=== PATIENT | male | born 1985 | race Caucasian/White ===

== ENCOUNTER 2024-06-11 07:51 | Emergency (ER) | payer BC, SELFPAY ==
[2024-06-11 07:53] VITALS: BP 111/64; PULSE 72; RESP 11; TEMP 36.9; O2SAT 99; BMI 27.9
--- NOTE | 2024-06-11 08:02 | EKG12_ITS ---
Test Reason : SYNCOPE Blood Pressure : */* mmHG Vent. Rate : 64 BPM Atrial Rate : 64 BPM P-R Int : 174 ms QRS Dur : 86 ms QT Int : 396 ms P-R-T Axes : 43 86 59 degrees QTcB Int : 408 ms Normal sinus rhythm Normal ECG Confirmed by CHARLES HUYNH, NADINE ([id number]), digital editor JASMIN SOTELO ([id number]) on 06/12/2024 8:20:15 AM Referred By: LORRAINE Confirmed By: NADINE SOTO MD
[2024-06-11] MEDS: 0.9% Normal Saline (1000mL) 1,000 ML 999 ML IV (08:07)
[2024-06-11 08:10] LABS: Absolute Lymphocyte Count 3.33 X10^3/uL (0.83-4.51); Absolute Neutrophil Count 2.9 X10^3/uL (2.0-7.7); Basophil# 0.05 X10^3/uL; Basophil% 0.7 % (0-1); Eosinophils% 5.4 % (0-5); Hematocrit 44.6 % (40-54); Hemoglobin 15.4 g/dL (13.0-16.5); Lymphocyte # 3.33 X10^3/ul (0.83-4.51); Lymphocyte % 44.9 % (19-41); Mean Corp Hgb Conc 34.5 g/dL (32-36); Mean Corpuscular Hgb 28.7 pg (27.0-32.0); Mean Corpuscular Volume 83.1 fL (80-94); Monocyte% 9.4 % (0-10); NRBC Flagged by Analyzer 0 % (0-5); Neutrophil % 39.2 % (47-70); Platelet Count 286 K/mm3 (150-450); RBC Distribution Width CV 13.5 % (11.6-14.6); RBC Distribution Width SD 40.8 fl (35.1-43.9); Red Blood Count 5.37 M/mm3 (4.6-6.2); White Blood Count 7.4 K/mm3 (4.4-11.0)
--- NOTE | 2024-06-11 08:12 | VDLE_ITS ---
Reason For Study Reason For Study: Pain RLE RIGHT LEFT GSV is normal. CFV is compressible, spontaneous, phasic, competent, CFV is compressible, spontaneous, phasic, competent and demonstrates normal augmentation. and demonstrates normal augmentation. FV is compressible, spontaneous, phasic, competent and demonstrates normal augmentation. Rt GastrocV is DILATED and NON COMPRESSIBLE with DVT extending into the Popliteal V Rt PopV DVT appears unstable. T/P Trunk is compressible. PTV is compressible. RT PerV is compressible. Procedure This is a venous duplex using B-mode, color flow and spectral Doppler. Exam performed portable in ED. A preliminary report was called and/or faxed to Dr. Flores. VL/Venous Duplex US, Unilateral Interpretation Summary Acute deep vein thrombosis is noted in the right popliteal vein, gastrocnemius vein. Ordering Physician: Devin Flores Performed By: Shireen Falcon, RANDELL, RVT
--- NOTE | 2024-06-11 08:13 | EDS_ITS ---
HPI History of Present Illness Chief Complaint: Syncope Narrative Narrative: Patient is a 38-year-old male with no known significant past medical history who presents to the emergency department after syncopal episode while in the shower. Patient states that this morning he got in the shower and noted that he was feeling not normal he states that he sat down in the shower and then he noted that he woke up lying completely flat on the shower floor. He states that his found him and states that he does not exactly remember while this occurred. He states that he for the past few days has had some pain in his right calf and states that his mother has recently had issues with blood clots. He states that he did travel to [place] recently but states that he has not had any other further travels. He himself denies any history of blood clots. [facility] Medical History Shoulder pain Back pain Neck pain Home Medications ?Medication ?Instructions ?Recorded ?Last Taken ?Type apixaban 5 mg (74 tabs) tablets in See Rx Instructions PO .COMPLEX 06/11/24 Unknown Rx a dose pack (Eliquis DVT-PE Treat #74 tabs 30D Start) Allergy/AdvReac Type Severity Reaction Status Date / Time No Known Allergies Allergy Verified 06/11/24 07:53 Social History Smoking Status: Former smoker ROS ROS ED ROS Narrative Constitutional: Denies fevers, chills, headaches Eyes: Denies change in vision double vision blurry vision Cardiovascular: Denies chest pain or palpitations Respiratory: Denies coughing wheezing shortness of breath Abdomen: Denies abdominal pain nausea vomit diarrhea : Denies any urinary symptoms Neurological: Denies numbness, weakness, tingling Musculoskeletal: Denies back pain Skin: Denies rashes or lesions EXAM Physical Exam Narrative Exam Narrative: General: Patient was lying in bed rest comfortably did not appear to be in acute distress Head: Atraumatic, normocephalic Eyes: PERRL bilateral, EOMI bilateral, no conjunctival injection noted Neck: Soft, supple and trachea midline Cardiovascular: Regular rate and rhythm no murmurs gallops rubs noted Respiratory: Clear to auscultation bilaterally no rales rhonchi or wheezes noted Abdomen: Soft, nondistended, nontender to palpation Musculoskeletal: No tenderness palpation in the right calf no swelling noted Extremities: +5/5 strength noted in the bilateral per lower extremity, radial pulses +2/4 in the bilateral extremities Neurological: Patient follow commands knew he was at [facility] year is 2024 Skin: Warm, dry, intact no rashes or lesions noted Const Vital Signs: 06/11/24 07:53 06/11/24 07:56 06/11/24 08:15 Temperature 98.5 F Temperature Source Oral Pulse Rate 72 Respiratory Rate 11 L Respiratory Effort Normal Respiratory Pattern Normal Blood Pressure 111/64 Blood Pressure Mean 79 Pulse Ox 99 Oxygen Delivery Method Room Air Room Air 06/11/24 08:52 06/11/24 10:00 06/11/24 11:17 Temperature Temperature Source Pulse Rate 65 65 77 Respiratory Rate 10 L 18 15 Respiratory Effort Respiratory Pattern Blood Pressure 116/82 H 128/78 H 127/69 H Blood Pressure Mean 93 94 88 Pulse Ox 99 95 99 Oxygen Delivery Method Room Air Room Air Room Air MDM MDM MDM Narrative Medical decision making narrative: Patient is a 38-year-old male who presented to the emergency department the chief complaint of syncope. On the differential diagnose includes but not limited to vasovagal syncope, near syncope, DVT, cardiac arrhythmia. Once workup is obtained reviewed he will be reevaluated. Fletcher patient's CBC was reviewed and showed no evidence leukocytosis white blood count normal at 7.4, hemoglobin 15.4, plate count was noted be 286. Patient sodium normal 130, potassium of 3.8, creatinine was normal at 1.06. Patient's troponin was less than 6 with a delta pending. Patient's EKG was reviewed by myself which showed sinus rhythm with a rate of 64 bpm with a normal MO interval of 174 and a QTc of 408. Patient's venous duplex was obtained and reviewed and he has a DVT noted in the gastroc vein that is extending into the popliteal region in the right popliteal DVT appears to be unstable. Given the DVT and the stability of this I added on a CTA of the chest. Patient CT of the chest was reviewed and showed no evidence of PE no acute processes noted. At this point time given the patient's syncopal episode and his unstable DVT will discuss case with hospitalist for admission. Discussed case with hospitalist Dr. Arellano who states that he called vascular surgeon Dr. Abarca and they had discussion and he states that there is no need to admit this patient he can be placed on Eliquis and sent home. Dr. Arellano Came down and evaluated the patient at bedside had discussion with him about this. We will add on a hypercoagulable workup before he is discharged and started on the Eliquis. He was advised to come to the emergency department if he hits his head while on the Eliquis or any other concerns. He was referred to a primary care physician. He is agreeable this plan as well as significant other at bedside all question concerns answered he is discharged home in stable condition. Lab Data Labs: Laboratory Results - last 24 hr 06/11/24 06/11/24 07:20 11:48 WBC 7.4 RBC 5.37 Hgb 15.4 Hct 44.6 MCV 83.1 MCH 28.7 MCHC 34.5 RDW Std Deviation 40.8 RDW Coeff of Valdo 13.5 Plt Count 286 MPV 10.0 Immature Gran % (Auto) 0.400 Neut % (Auto) 39.2 L Lymph % (Auto) 44.9 H Harmon % (Auto) 9.4 Eos % (Auto) 5.4 H Baso % (Auto) 0.7 Absolute Neuts (auto) 2.9 Absolute Lymphs (auto) 3.33 Nucleated RBC % 0 Sodium 137 Potassium 3.8 Chloride 100 Carbon Dioxide 24.4 Anion Gap 13 BUN 12 Creatinine 1.06 Estim Creat Clear Calc 111.06 Est GFR (MDRD) Non-Af 93 BUN/Creatinine Ratio 11.6 Glucose 114 H Calcium 9.8 Troponin T High Sens < 6 Troponin T Hi Sens 2 Hr < 6 Radiography Diagnostic Testing: Clinical Impression(s) from Imaging Studies Chest X-Ray 06/11/24 08:15 IMPRESSION: No radiographic evidence of acute cardiopulmonary disease. Reading Location: [address] Chest CTA 06/11/24 10:52 IMPRESSION: 1. No evidence of pulmonary embolism. 2. No acute process is seen. Reading Location: [id number] Discharge Plan Triage Chief Complaint: Syncope ED Provider: Devin Flores Dx/Rx/DC Orders Clinical Impression: Deep vein thrombosis (DVT) of calf muscle vein of right lower extremity Prescriptions: New Eliquis DVT-PE Treat 30D Start 5 mg (74 tabs) tablets,dose pack See Rx Instructions .ROUTE .COMPLEX Qty: 74 0RF Rx Instructions: orally per package directions Primary Care Provider: Care Physician,No Primary Referrals: Care Physician,No Primary [Primary Care Provider] - Roger Machado MD [Med Staff - Supervisor [employer]] - Activity Restrictions/Additional Instructions: Follow-up with the doctor that you referred to. Return with worsening symptoms or concerns. Your ultrasound showed that you had a DVT/blood clot in your right leg. You need to take the medication that was sent to your pharmacy as pr escribed. If you fall and hit your head you need to come to the emergency department immediately as you could have a head bleed. Follow-up on the blood work that was sent with your doctor to evaluate if there was a specific cause for the blood clot. Print Language: Trinidadian Disposition Disposition: Home, Self Care
--- NOTE | 2024-06-11 08:15 | RAD_ITS ---
EXAM: CHEST PA AND LATERAL CLINICAL HISTORY: SYNCOPE COMPARISON: None. TECHNIQUE: Three-view PA and lateral views of the chest obtained. FINDINGS: The cardiac silhouette is not enlarged. No pulmonary parenchymal consolidative opacities. No pneumothorax or significant pleural effusion. No acute osseous abnormality is identified. RAD/Chest PA and Lateral IMPRESSION: No radiographic evidence of acute cardiopulmonary disease. Reading Location: [id number]
[2024-06-11 08:37] LABS: Anion Gap 13 (5-15); BUN 12 mg/dL (4-19); BUN/Creat Ratio 11.6 RATIO (10-20); Calcium,Total 9.8 mg/dL (7.6-11.0); Carbon Dioxide 24.4 mmol/L (21.0-32.0); Chloride 100 mmol/L (98-108); Creatinine, Serum 1.06 mg/dL (0.70-1.20); EST Glomerular Filtration Rate 93 (>60); Estimated Creatinine Clearance 111.06 ml/min (50-250); Glucose 114 mg/dL (70-99); Potassium 3.8 mmol/L (3.3-5.1); Sodium Level 137 mmol/L (133-145); Troponin T High Sensitivity < 6 ng/L (<=22)
[2024-06-11 08:52] VITALS: BP 116/82; PULSE 65; RESP 10; O2SAT 99
[2024-06-11 10:00] VITALS: BP 128/78; PULSE 65; RESP 18; O2SAT 95
--- NOTE | 2024-06-11 10:52 | CT_ITS ---
PROCEDURE: CTA CHEST W/WO CONTRAST 06/11/2024 REASON FOR EXAM: DVT, SYNCOPE TECHNIQUE: CTA axial imaging of the chest with intravenous contrast. Coronal and Sagittal reconstruction series were provided. 3D, 3D post processing, 3D reconstructions, Maximum intensity projection (MIPs) Volume rendering and Shaded surface rendering was provided. PATIENT PREPARATION: Per protocol CONTRAST: Isovue 370 VOLUME: 100mL. One or more dose reduction techniques were used (e.g., Automated exposure control, adjustment of the mA and/or kV according to patient size, use of iterative reconstruction technique). RADIATION DOSE SUMMARY: CTDlvol: 12.74 mGy DLP: 471.0 MGycm. COMPARISON: Chest x-ray 06/11/2024. FINDINGS: Lymph nodes: No adenopathy is seen. Heart: No pericardial effusion is seen. No evidence of cardiomegaly. Thoracic Aorta: No aortic aneurysm is seen in visualized areas. Pulmonary Vessels: No evidence of pulmonary embolism. Lungs and Airways: No acute pneumonic process is evident. Pleura: No pleural effusion or pneumothorax is seen. Upper Abdomen: The visualized upper abdomen shows no acute process. Bones: Mild degenerative changes of the lower thoracic spine are noted. CT/CTA Chest W/WO Contrast IMPRESSION: 1. No evidence of pulmonary embolism. 2. No acute process is seen. Reading Location: [id number]
[2024-06-11 11:17] VITALS: BP 127/69; PULSE 77; RESP 15; O2SAT 99
[2024-06-11 12:00] VITALS: BP 127/88; PULSE 81; RESP 15; O2SAT 97
[2024-06-11 12:28] LABS: Troponin T High Sens 2 HR < 6 ng/L (<=22)
[2024-06-11 13:01] VITALS: BP 115/80; PULSE 65; RESP 14; TEMP 37.1; O2SAT 95
[2024-06-16 10:08] LABS: Anti-Cardiolipin Ab, IgG, Qn < 9 GPL U/mL (0-14); Anti-Cardiolipin Ab, IgM, Qn < 9 MPL U/mL (0-12); Anti-Thrombin 3 AG, Immunol 84 % (72-124); Antithrombin 3 Function 112 % (75-135); Beta-2-Glycoprotein I IgA <9 (0-25); Beta-2-Glycoprotein I IgG <9 (0-20); Beta-2-Glycoprotein I IgM <9 (0-32); Protein C Antigen 85 % (60-150); Protein C, Functional 152 % (73-180)
== END 2024-06-11 13:25 | disposition home or self-care (01) ==
PROVIDERS: Emergency Provider Emergency Medicine; Visit Provider Emergency Medicine
DX: R55 Syncope and collapse (principal); I82.461 Acute embolism and thrombosis of right calf muscular vein; Z87.891 Personal history of nicotine dependence; M79.661 Pain in right lower leg
CPT/HCPCS: 96360; 71046; 71275; 80048; 81240; 81241; 84484; 85025; 85300; 85301; 85302; 85303; 86146; 86147; 93005; 93971; 99285; Q9967; A4216

== ENCOUNTER → 2024-07-03 | Outpatient (CLI) | payer BC, SELFPAY ==
--- NOTE | 2024-07-03 14:52 | VDLE_ITS ---
Reason For Study Reason For Study: LLE PAin RIGHT LEFT CFV is compressible, spontaneous, phasic, competent GSV is normal. and demonstrates normal augmentation. CFV is compressible, spontaneous, phasic, competent, Procedure and demonstrates normal augmentation. This is a venous duplex using B-mode, color flow and FV is compressible, spontaneous, phasic, competent spectral Doppler. and demonstrates normal augmentation. Exam performed in department. POP V is compressible, spontaneous, phasic, competent The exam was diagnostic. and demonstrates normal augmentation. A preliminary report was called and/or faxed to T/P Trunk is compressible. Jeannette's office. PTV is compressible. LT PerV is compressible. VL/Venous Duplex US, Unilateral Interpretation Summary Deep veins of the left lower extremity are patent and compressible segmentally. There is no evidence of left lower extremity deep vein thrombosis. The left great saphenous vein appears patent an d compressible segmentally. Ordering Physician: Roger Machado Referring Physician: Roger Machado Performed By: Jc Cortés RVT
== END | disposition home or self-care (01) ==
LOC: CVS 14:50
PROVIDERS: PCP Family Medicine; Referring Provider Family Medicine; Visit Provider Family Medicine
DX: M79.662 Pain in left lower leg (principal)
CPT/HCPCS: 93971

== ENCOUNTER → 2024-09-26 | Outpatient (CLI) | payer BC, SELFPAY ==
[2024-09-26 12:42] LABS: Hematocrit 43.8 % (40-54); Hemoglobin 15.0 g/dL (13.0-16.5); Immature Granulocytes Count 0.010 X10^3/uL (0.0-0.0); Mean Corp Hgb Conc 34.2 g/dL (32-36); Mean Corpuscular Volume 82.8 fL (80-94); Mean Platelet Vol. 10.4 fl (6.2-12.0); NRBC Flagged by Analyzer 0 % (0-5); Platelet Count 278 K/mm3 (150-450); RBC Distribution Width CV 13.1 % (11.6-14.6); RBC Distribution Width SD 39.5 fl (35.1-43.9); Red Blood Count 5.29 M/mm3 (4.6-6.2); White Blood Count 5.5 K/mm3 (4.4-11.0)
[2024-09-26 13:23] LABS: AST(SGOT) 22 U/L (<=37); Alanine Aminotransfer ALT/SGPT 31 U/L (<=46); Albumin, Serum 4.4 g/dL (3.5-5.0); Alkaline Phosphatase 65 U/L (40-129); Anion Gap 11 (5-15); BUN 13 mg/dL (4-19); BUN/Creat Ratio 15.1 RATIO (10-20); Calcium,Total 9.6 mg/dL (7.6-11.0); Carbon Dioxide 21.0 mmol/L (21.0-32.0); Chloride 105 mmol/L (98-108); Globulin 3.1 g/dL (2.2-4.2); Glucose 95 mg/dL (70-99); Potassium 4.2 mmol/L (3.3-5.1)
[2024-09-26 13:33] LABS: FOLATES,SERUM (FOLIC ACID) 16.30 ng/mL (4.60-34.80)
[2024-09-26 13:50] LABS: CRP < 3.00 mg/L (0.0-3.0); Vitamin B12 932 pg/mL (180-914); Vitamin D,25 Hydroxy 21.1 ng/mL (30-100)
[2024-09-27 18:45] LABS: Ferritin 233 ng/mL (37-417); Free T3 2.9 pg/mL (2.18-3.98); Iron 101 ug/dL (65-175)
[2024-10-02 14:08] LABS: Red Blood Cell Count Test/G6PD 5.30 x10E6/uL (4.14-5.80); VITAMIN B6 62.5 ug/L (3.4-65.2); Vitamin B1, Thiamine 146.6 nmol/L (66.5-200.0)
== END | disposition home or self-care (01) ==
LOC: BIMLAB 10:40
PROVIDERS: PCP Family Medicine; Referring Provider Nurse Practitioner Family; Visit Provider Nurse Practitioner Family
DX: A44.0 Systemic bartonellosis (principal); I82.409 Acute embolism and thrombosis of unspecified deep veins of unspecified lower extremity; A79.82 Anaplasmosis [A. phagocytophilum]; A68.1 Tick-borne relapsing fever; R53.82 Chronic fatigue, unspecified; R41.89 Other symptoms and signs involving cognitive functions and awareness; M25.569 Pain in unspecified knee; L30.9 Dermatitis, unspecified; D68.69 Other thrombophilia; R06.00 Dyspnea, unspecified
CPT/HCPCS: 36415; 80053; 82306; 82607; 82627; 82728; 82746; 82955; 83540; 84207; 84403; 84425; 84439; 84443; 84481; 85025; 86140; 82626

== ENCOUNTER → 2025-03-05 | Outpatient (CLI) | payer BC, SELFPAY ==
[2025-03-05 12:56] LABS: Hematocrit 44.3 % (40-54); Hemoglobin 15.3 g/dL (13.0-16.5); Immature Granulocytes Count 0.040 X10^3/uL (0.0-0.0); Mean Corp Hgb Conc 34.5 g/dL (32-36); Mean Corpuscular Volume 84.2 fL (80-94); Mean Platelet Vol. 10.0 fl (6.2-12.0); NRBC Flagged by Analyzer 0 % (0-5); Platelet Count 323 K/mm3 (150-450); RBC Distribution Width CV 13.2 % (11.6-14.6); RBC Distribution Width SD 40.9 fl (35.1-43.9); Red Blood Count 5.26 M/mm3 (4.6-6.2); White Blood Count 6.6 K/mm3 (4.4-11.0)
[2025-03-05 13:33] LABS: AST(SGOT) 24 U/L (<=37); Alanine Aminotransfer ALT/SGPT 32 U/L (<=46); Albumin, Serum 4.4 g/dL (3.5-5.0); Alkaline Phosphatase 53 U/L (40-129); Anion Gap 9 (5-15); BUN 9 mg/dL (4-19); BUN/Creat Ratio 11.0 RATIO (10-20); Calcium,Total 9.8 mg/dL (7.6-11.0); Carbon Dioxide 27.9 mmol/L (21.0-32.0); Chloride 104 mmol/L (98-108); Globulin 2.8 g/dL (2.2-4.2); Glucose 88 mg/dL (70-99); Potassium 4.0 mmol/L (3.3-5.1)
== END | disposition home or self-care (01) ==
LOC: LABSPEC 12:41
PROVIDERS: PCP Family Medicine; Referring Provider Nurse Practitioner Family; Visit Provider Nurse Practitioner Family
DX: I82.409 Acute embolism and thrombosis of unspecified deep veins of unspecified lower extremity (principal); R53.82 Chronic fatigue, unspecified; M25.569 Pain in unspecified knee; L30.9 Dermatitis, unspecified; D68.69 Other thrombophilia; A44.0 Systemic bartonellosis; A79.82 Anaplasmosis [A. phagocytophilum]; A68.1 Tick-borne relapsing fever
CPT/HCPCS: 80053; 85025